=== PATIENT | male | born 1955 | race Caucasian/White ===

== ENCOUNTER → 2016-09-19 | Outpatient (CLI) | payer BC, OTHER ==
[~2016-09-19] MED LIST: ACET-749 PO; CIPR1TAB10 PO; CLC100 PO; CLC150 PO; DTR5 PO; LOSA50TA6 PO; LSN20 PO; PROM25TA PO; TPRSR50 PO; [UNRECOGNIZED DRUG - REMARK]
[2016-09-19 13:10] LABS: LYME DISEASE AB IGG NEG (NEG); LYME DISEASE AB IGM NEG (NEG)
== END | disposition home or self-care (01) ==
LOC: C.LABBFT 09:38
PROVIDERS: ATTEND Internal Medicine
DX: T14.90 Injury, unspecified (principal); W57.XXXA Bitten or stung by nonvenomous insect and other nonvenomous arthropods, initial encounter

== ENCOUNTER → 2016-12-16 | Outpatient (CLI) | payer BC | END | disposition home or self-care (01) | LOC: C.PATHSPEC 17:28 | PROVIDERS: ATTEND Urology | DX: N40.3 Nodular prostate with lower urinary tract symptoms (principal) ==

== ENCOUNTER → 2016-12-31 | Outpatient (CLI) | payer BC ==
--- NOTE | 2016-12-31 15:06 | DIAGNOSTIC IMAGING REPORT ---
BONE SCAN WHOLE BODY CLINICAL HISTORY: Prostate carcinoma COMPARISON STUDY: No previous studies for comparison. FINDINGS: The patient was injected with 25.5 mCi of technetium 99m MDP. Three-hour delayed whole body images were acquired. There are foci of increased activity within both knees, most intense at the level of the left patella. There are foci of increased activity within the wrists and feet. A degenerative/arthritic etiology is suspected. There are foci of increased activity within the thoracic spine, most pronounced to the right of midline posteriorly. There is a focus of increased activity at the L4 level posteriorly on the right. Again a degenerative etiology is most likely. IMPRESSION: Multiple scattered foci of increased skeletal activity. The overall distribution favors a degenerative/arthritic etiology. Electronically signed by: Jaime Aguirre M.D. 12/31/2016 3:05 PM Dictated Date/Time: 12/31/2016 3:03 PM
== END | disposition home or self-care (01) ==
LOC: C.NUCL 10:26
PROVIDERS: ATTEND Urology
DX: C61 Malignant neoplasm of prostate (principal)

== ENCOUNTER 2017-01-06 05:52 | Inpatient (IN) | payer BC ==
[~2017-01-06] VITALS: Ht 177.8 cm; Wt 89.4 kg
[2017-01-06] VITALS (8 sets, daily range): BP systolic 138–169; BP diastolic 86–105; PULSE 83–113; TEMP 36.7–36.9; O2SAT 91–96; Ht 177.8 cm; Wt 89.4 kg
[~2017-01-06 05:52] MED LIST changes: -ACET-749 PO; -CIPR1TAB10 PO; -CLC100 PO; -CLC150 PO; -DTR5 PO; -LOSA50TA6 PO; -LSN20 PO; -TPRSR50 PO; -[UNRECOGNIZED DRUG - REMARK]
[2017-01-06 06:36] LABS: BASO % 0.1 %; BASO ABS # 0.01 K/uL (0-0.2); COMPLETE YES; EOS % 0.1 %; HEMATOCRIT 40.8 % (42-52); IG% 0.1 %; LYMPH % 6.9 %; LYMPH ABS # 0.83 K/uL (1.2-3.4); MEAN CELL VOLUME 88.7 fL (80-100); MEAN CORPUSCULAR HEMOGLOBIN 31.1 pg (25-34); MEAN PLATELET VOLUME 9.1 fL (7.4-10.4); MONO % 8.5 %; NEUT % 84.3 %; PLATELET COUNT 244 K/uL (130-400); WHITE BLOOD COUNT 11.95 K/uL (4.8-10.8)
[2017-01-06] MEDS ORDERED: KETOROLAC TROMETHAMINE 30 MG/ML VIAL IV STA (06:43)
[2017-01-06] MEDS ORDERED: SODIUM CHLORIDE 0.9% 1000ML 1,000 ML IV STA (06:43)
--- NOTE | 2017-01-06 06:53 | EMERGENCY ROOM VISIT NOTE ---
History Report prepared by Milesibilsa: James Escamilla Under the Supervision of: Dr. Aric Jackson M.D. First contact with patient: 06:33 Chief Complaint: THROAT PAIN/INJURY Stated Complaint: SWELLING TO LEFT SIDE OF FACE, CANT SWALLOW History of Present Illness The patient is a 61 year old male who presents to the Emergency Room with complaints of constant throat swelling beginning yesterday. He states that the swelling is primarily on the left side. He states that he has developed difficulty swallowing. He states that there is only pain present in his throat with swallowing. The patient notes that he was sleeping a lot yesterday as well. He denies any shortness of breath, sore throat, vomiting, dental pain, numbness, weakness, leg pain, or abdominal pain. He complains of subjective fever, chills, nausea, and headache. The patient denies any recent falls or trauma. He notes that he was recently diagnosed with prostate cancer, but has not begun treatment yet. Source of History: patient Onset: Yesterday Position: throat (left side) Quality: other (swelling) Timing: constant Associated Symptoms: + chills, + fevers (subjective), + headache, + nausea, No SOB, No abdominal pain, No numbness, No sorethroat, No vomiting, No weakness Note: The patient denies any dental pain, or leg pain. Review of Systems See HPI for pertinent positives & negatives. A total of 10 systems reviewed and were otherwise negative. Past Medical & Surgical Medical Problems: (1) Peritonsillar abscess (2) Prostate cancer Old medical records were reviewed. Nurse's notes were reviewed and I agree with. Family History No pertinent family history stated. Social History Smoking Status: Never Smoker Drug Use: none Occupation Status: employed Current/Historical Medications No Active Prescriptions or Reported Meds Allergies Coded Allergies: No Known Allergies (Unverified , 01/06/17) Physical Exam Vital Signs Date Time Temp Pulse Resp B/P Pulse Ox O2 Delivery O2 Flow Rate FiO2 01/06/17 08:58 96 Room Air 01/06/17 08:08 84 18 143/89 96 01/06/17 07:00 86 18 126/69 94 Room Air 01/06/17 06:36 94 Room Air 01/06/17 06:04 97 Room Air 01/06/17 05:58 36.8 100 20 169/107 95 Room Air Physical Exam General: Well developed, well nourished, non-ill appearing middle aged male in no acute distress, breathing comfortably on room air. Normal speech HEENT: Normal cephalic atraumatic. Pupils are equal round and reactive to light. Extraocular movements are intact. No swelling of the mouth lips or tongue. Oropharynx is pink with moist mucous membranes. Non-muffled voice. Swallowing and speaking without difficulty. No evidence of airway compromise. No Brent's angina. Floor of mouth is soft. Mild swelling posteriorly. Tenderness and swelling to the left anterior neck. Neck: Supple with a midline trachea. No meningeal signs or stiffness, no JVD or bruits. No Stridor. Chest: Clear to auscultation bilaterally. No wheezes or rhonchi. No increased work of breathing. Heart: regular rate and rhythm. Abdomen: Soft nontender, nondistended without rebound guarding or rigidity. Extremities: No cyanosis clubbing or edema. No calf tenderness or assymetry Spine/Back. Non tender to palpation. No CVA tenderness Skin: Good turgor without rashes. Neurologic exam: Cranial nerves two through 12 are intact. Motor and sensation are intact and symmetrical throughout. Medical Decision & Procedures ER Provider Diagnostic Interpretation: CT results as stated below per my review and radiologist interpretation: CT OF THE NECK WITH CONTRAST FINDINGS: Visualized portions of the intracranial contents are unremarkable. There is mild mucosal thickening of the sinuses. Mastoid air cells are clear. There is no soft tissue gas within the neck. There is pharyngeal edema, most pronounced within the hypopharynx. There is significant swelling of the left aryepiglottic fold as well as the posterior soft tissues at this level. There is severe supraglottic airway narrowing. A 1.1 cm rim-enhancing left peritonsillar fluid collection shown on image 41 of 95 suggests a small peritonsillar abscess. There are no additional abscesses. There is mild infiltration within the left parapharyngeal soft tissues. Major vasculature of the neck is patent. Lung apices are clear. There is a 1.5 cm right lobe thyroid nodule. IMPRESSION: Significant pharyngeal edema, most pronounced within the left aryepiglottic fold and the posterior soft tissues at this level. These findings result in severe supraglottic airway narrowing. Close clinical monitoring is recommended. Associated 1.1 cm rim-enhancing left peritonsillar fluid collection suggests a small abscess. Overall, the findings favor an infectious process such as pharyngitis/tonsillitis. An underlying neoplastic process is considered less likely but would be difficult to exclude. Imaging follow-up to ensure resolution is recommended. Findings discussed with Dr. Jackson at time of dictation. Electronically signed by: Gabe Tirado M.D. Laboratory Results 01/06/17 06:20 Red Blood Count 4.60, Mean Corpuscular Volume 88.7, Mean Corpuscular Hemoglobin 31.1, Mean Corpuscular Hemoglobin Concent 35.0, Mean Platelet Volume 9.1, Neutrophils (%) (Auto) 84.3, Lymphocytes (%) (Auto) 6.9, Monocytes (%) (Auto) 8.5, Eosinophils (%) (Auto) 0.1, Basophils (%) (Auto) 0.1, Neutrophils # (Auto) 10.07, Lymphocytes # (Auto) 0.83, Monocytes # (Auto) 1.02, Eosinophils # (Auto) 0.01, Basophils # (Auto) 0.01 01/06/17 06:20 Test 01/06/17 06:20 White Blood Count 11.95 K/uL (4.8-10.8) Red Blood Count 4.60 M/uL (4.7-6.1) Hemoglobin 14.3 g/dL (14.0-18.0) Hematocrit 40.8 % (42-52) Mean Corpuscular Volume 88.7 fL (80-100) Mean Corpuscular Hemoglobin 31.1 pg (25-34) Mean Corpuscular Hemoglobin Concent 35.0 g/dl (32-36) Platelet Count 244 K/uL (130-400) Mean Platelet Volume 9.1 fL (7.4-10.4) Neutrophils (%) (Auto) 84.3 % Lymphocytes (%) (Auto) 6.9 % Monocytes (%) (Auto) 8.5 % Eosinophils (%) (Auto) 0.1 % Basophils (%) (Auto) 0.1 % Neutrophils # (Auto) 10.07 K/uL (1.4-6.5) Lymphocytes # (Auto) 0.83 K/uL (1.2-3.4) Monocytes # (Auto) 1.02 K/uL (0.11-0.59) Eosinophils # (Auto) 0.01 K/uL (0-0.5) Basophils # (Auto) 0.01 K/uL (0-0.2) RDW Standard Deviation 42.6 fL (36.4-46.3) RDW Coefficient of Variation 13.1 % (11.5-14.5) Immature Granulocyte % (Auto) 0.1 % Immature Granulocyte # (Auto) 0.01 K/uL (0.00-0.02) Anion Gap 6.0 mmol/L (3-11) Est Creatinine Clear Calc Drug Dose 77.2 ml/min Estimated GFR () 82.4 Estimated GFR (Non- 71.1 BUN/Creatinine Ratio 14.2 (10-20) Calcium Level 9.0 mg/dl (8.5-10.1) C-Reactive Protein 9.00 mg/dl (0-0.29) Hepatitis C Antibody Screen NEG (NEG) Laboratory studies as stated above per my review. Medications Administered Medications (Trade) Dose Ordered Sig/Ra Route Start Time Stop Time Status Last Admin Dose Admin Sodium Chloride (Nss 1000ml) 1,000 ml @ 999 mls/hr Q1H1M STAT IV 01/06/17 06:43 01/06/17 07:43 DC 01/06/17 06:58 999 MLS/HR Ketorolac Tromethamine (Toradol Inj) 30 mg NOW STAT IV 01/06/17 06:43 01/06/17 06:45 DC 01/06/17 06:58 30 MG Dexamethasone Sodium Phosphate 10 mg 10 mg NOW STAT IV 01/06/17 07:57 01/06/17 07:59 DC 01/06/17 08:05 10 MG Ampicillin Sodium/ Sulbactam Sodium 3000 mg/Sodium Chloride 108 ml @ 200 mls/hr NOW STAT IV 01/06/17 07:57 01/06/17 08:29 DC 01/06/17 08:09 200 MLS/HR Potassium Chloride/Dextrose/ Sod Cl (D5nss + 20meq KCl) 1,000 ml @ 75 mls/hr [id number] IV 01/06/17 09:03 02/05/17 09:02 01/06/17 10:47 75 MLS/HR ED Course 0635: Past medical records reviewed. The patient was evaluated in room A3, and a complete history and physical examination were performed. 0643: Ordered Toradol Inj 20 mg IV, Sodium Chloride 1000 ml @ 999 mls/hr IV. 0742: I checked in on the patient. He has returned from CT and feels well. He notes that his symptoms are worse when he is laying flat. 0757: Ordered Ampicillin Sodium/Sulbactam Sodium 3000 mg/Sodium Chloride 108 ml @ 200 mls/hr IV, Decadron Inj 10 mg IV. 0805: I reassessed the patient. She is stable and appears well. 0812: Upon reevaluation, the patient is resting comfortably. She is not short of breath, or drooling. Her pain is improving. I discussed the results and treatment plan with the patient. He verbalized agreement of the treatment plan. 0822: The patient will be evaluated for further management. Medical Decision Differentials include, but are not limited to; abscess, infection, strep, dehydration, allergic reaction, and electrolyte or metabolic abnormality. Medication reconciliation :, I have personally reviewed his list of medications , he is on no medications chronically. This patient comes in as described above his pain along the left side of his neck. He does have some mild swelling there. He has pain with swallowing but is handling secretions without difficulty. He has no shortness of breath. He has no hives is no nausea or vomiting. He is non-hypoxemic. IV access established was gently hydrated a 1 L IV normal saline bolus. He has no evidence of Brent's angina exam. Multiple blood tests was obtained as well as a CAT scan of his neck. He was given Toradol 30 mg IV for pain. He is on no chronic medications. He has no acute electrolyte or metabolic abnormalities. His white count is mildly elevated and a CRP is also elevated. CAT scan was obtained. There i significant amount of supraglottic inflammation likely consult the pharyngitis. The patient is given IV Decadron as well as IV Unasyn. He looks well he is not drooling. He remained stable. I did discuss the case with Dr. Guerrero and he will come scope the patient for further evaluation. Sometime this afternoon. I think this is reasonable. I will have the patient admitted for observation further treatment and evaluation. Consults Consulting Physician: Dr. Tirado -Radiology Returned Call: [phone] Discussed the patient's CT with Dr. Tirado. He states that the patient appears to have supraglottic stenosis, pharyngitis and possible abscess. Additional Consults: Time Called: 075 Consulted Physician: Dr. Guerrero -ENT Returned Call: 08 Additional Comments: I discussed the patient's case with Dr. Guerrero of ENT. He recommends that the patient be observed and receive IV antibiotics. He will see the patient. Time Called: 08 Consulted Physician: Dr. Shannan Multani Returned Call: 08 Additional Comments: Discussed the patient's case. The patient will be evaluated for further management. Impression Primary Impression: Pharyngitis Additional Impression: Supraglottic edema Scribe Attestation The scribe's documentation has been prepared under my direction and personally reviewed by me in its entirety. I confirm that the note above accurately reflects all work, treatment, procedures, and medical decision making performed by me. Departure Information Dispostion Being Evaluated By Hospitalist Prescriptions No Active Prescriptions or Reported Meds Referrals Abdulaziz Renner M.D. (PCP) Patient Instructions My [facility] Problem Qualifiers
[2017-01-06 06:54] LABS: BUN/CREATININE RATIO 14.2 (10-20); CREATININE 1.1 mg/dl (0.60-1.40); POTASSIUM 3.6 mmol/L (3.5-5.1)
[2017-01-06] MEDS ORDERED: OPTIRAY 320 IV PRN (07:45)
[2017-01-06] MEDS ORDERED: AMPICILLIN/SULBACTAM SOD INJ 3,000 MG in SODIUM CHLORIDE 0.9% 100ML 100 ML IV STA (07:57)
[2017-01-06] MEDS ORDERED: DEXAMETHASONE SOD INJ 4 MG/ML VIAL IV STA (07:57)
--- NOTE | 2017-01-06 08:06 | DIAGNOSTIC IMAGING REPORT ---
CT OF THE NECK WITH CONTRAST CT DOSE: 507.94 mGy.cm CLINICAL HISTORY: Left neck pain and swelling. TECHNIQUE: Axial images of the neck were obtained following intravenous injection of 91 cc Optiray 320 IV. COMPARISON STUDY: None. FINDINGS: Visualized portions of the intracranial contents are unremarkable. There is mild mucosal thickening of the sinuses. Mastoid air cells are clear. There is no soft tissue gas within the neck. There is pharyngeal edema, most pronounced within the hypopharynx. There is significant swelling of the left aryepiglottic fold as well as the posterior soft tissues at this level. There is severe supraglottic airway narrowing. A 1.1 cm rim-enhancing left peritonsillar fluid collection shown on image 41 of 95 suggests a small peritonsillar abscess. There are no additional abscesses. There is mild infiltration within the left parapharyngeal soft tissues. Major vasculature of the neck is patent. Lung apices are clear. There is a 1.5 cm right lobe thyroid nodule. IMPRESSION: Significant pharyngeal edema, most pronounced within the left aryepiglottic fold and the posterior soft tissues at this level. These findings result in severe supraglottic airway narrowing. Close clinical monitoring is recommended. Associated 1.1 cm rim-enhancing left peritonsillar fluid collection suggests a small abscess. Overall, the findings favor an infectious process such as pharyngitis/tonsillitis. An underlying neoplastic process is considered less likely but would be difficult to exclude. Imaging follow-up to ensure resolution is recommended. Findings discussed with Dr. Jackson at time of dictation. Electronically signed by: Gabe Tirado M.D. 01/06/2017 8:04 AM Dictated Date/Time: 01/06/2017 7:45 AM
[2017-01-06] MEDS ORDERED: ZOLPIDEM TARTRATE 5 MG TAB PO PRN (09:15)
[2017-01-06] MEDS ORDERED: MAGNESIUM HYDROXIDE SUSP 30 ML UDC PO PRN (09:15)
[2017-01-06] MEDS ORDERED: ACETAMINOPHEN 325 MG TAB PO PRN (09:15)
[2017-01-06] MEDS ORDERED: POLYETHYLENE (MIRALAX) 17 GM PACK PO PRN (09:15)
[2017-01-06] MEDS: D5NSS + 20MEQ KCL 1,000 ML IV SCH ×2 (10:47→22:24)
--- NOTE | 2017-01-06 10:59 | HISTORY & PHYSICAL EXAMINATION ---
DATE OF ADMISSION: 01/06/2017 CHIEF COMPLAINT: Sore throat. HISTORY OF PRESENT ILLNESS: The patient is a 61-year-old man who was fairly healthy until a few weeks ago when he was diagnosed with prostate cancer. The patient is under staging prostate cancer at this point, had a bone scan recently but does not know the results yet. He was in his regular state of health until 2 days ago, he was working outside in the rain for a while. When he came inside the house, he felt that he was not able to bring to warm up his body soon enough. Shortly after that, he started having malaise and body aches. He also felt some sore throat and difficulty swallowing. The patient's symptoms progressed into lethargy and feeling severe sore throat, and he was unable to eat due to pain. He said that he had intermittent fever and chills. He said that his temperature also used to go up and down. The patient came to the ED for further evaluation and management. A CAT scan was done and showed a small 1.1 cm peritonsillar abscess and pharyngeal edema. The patient denies any chest pain, palpitation. Denies any diarrhea, blood in the stools. He said when he laid flat for the CAT scan, he was having a little bit difficulty breathing, but right now it resolved in semi-sitting position. REVIEW OF SYSTEMS: Denies any headache, double vision, blurry vision. Denies any chest pain, palpitation. Denies any cough, wheezing or shortness of breath. Denies any diarrhea, blood in stools. Denies any burning in the urine or blood. Denies any focal weakness, tingling or numbness. Rest of the review of systems is negative. PAST MEDICAL HISTORY: Negative for anything except borderline diabetes and newly diagnosed prostate cancer. SOCIAL HISTORY: He does not smoke or drink. He lives by himself. FAMILY HISTORY: Sister has history of GI cancer. Mother has diabetes. HOME MEDICATIONS: None. ALLERGIES: No known allergies. PHYSICAL EXAMINATION: VITAL SIGNS: Temperature 36.8, pulse 84, respirations 18, blood pressure 143/89, saturation 96% on room air. GENERAL: Well developed, well nourished, average build, not in acute distress, appears to be comfortable. HEENT: No jaundice, no pallor. Wet mucous membrane. Pharynx appears to have a swollen soft palate and uvula with erythema. Slight narrowing of pharyngeal airway opening. NECK: Supple. Tenderness, especially on the left aspect of the neck. LUNGS: Clear to auscultation bilaterally. Normal chest wall expansion. HEART: S1, S2 normal. No gallop, rub or murmur. ABDOMEN: Soft, nontender, nondistended. EXTREMITIES: No cyanosis, clubbing or edema. BACK: No tenderness. SKIN: No rash on exposed skin areas. NEUROLOGIC: Awake, alert, oriented to time, place and person. Moves all extremities. Sensation intact. Cranial nerves II-XII appear to be intact. PSYCHIATRIC: Appropriate thought process and affect. IMAGING: CT of the neck showed 1.1 cm left peritonsillar abscess with pharyngeal edema. LABORATORY DATA: White blood cell count 11.9, hemoglobin 14.3, platelets 244. Creatinine 1.1, BUN 16, sodium 136, potassium 3.6. ASSESSMENT: 1. Left peritonsillar abscess with pharyngeal edema. 2. Newly diagnosed prostate cancer. 3. Borderline diabetes. PLAN: 1. The patient already received Unasyn. We will continue Unasyn 3 grams IV q. 6 hours. 2. Keep the patient n.p.o. 3. Start the patient on Decadron until he is seen by ENT. 4. ER already consulted Dr. Guerrero, awaiting his evaluation. 5. SCD boots for DVT prophylaxis. Currently will hold pharmacologic DVT prophylaxis for potential required surgery. 6. Pepcid for GI prophylaxis. 7. Obtain hemoglobin A1c to stratify the patient's risk factor and rule out underlying diabetes mellitus. 8. While n.p.o., we will keep him hydrated with IV fluids. 9. We will continue to monitor the patient and further evaluation will follow.
[2017-01-06] MEDS: FAMOTIDINE IV INJ 20 MG in DEXTROSE 5% 100ML 100 ML IV SCH ×2 (13:26→23:41)
--- NOTE | 2017-01-06 13:29 | CONSULTATION REPORT ---
DATE OF CONSULTATION: 01/06/2017 DIAGNOSIS: Supraglottitis. HISTORY: This 61-year-old man was admitted with 2-day history of sore throat. He did complain of some shortness of breath when he lied down for the CT scan. He states that his symptoms are greatly improved from the IV antibiotics and IV steroids since he was admitted this morning. PAST MEDICAL HISTORY: Pertinent for prostate cancer. ALLERGIES: He has no known allergies. PHYSICAL EXAMINATION: VITAL SIGNS: Temperature 36.8, BP 143/89, pulse 84, respirations 18. GENERAL: WNWD male in no acute distress, breathing comfortably on room air at this point. His speech is a little bit lower toned and a little bit hoarse but otherwise normal with no evidence of stridor. HEAD: Normocephalic. EYES: Normal. EARS: Normal. NOSE: Nasal passages, septal deviation to the left. THROAT: Oropharynx shows 2+ tonsillar hypertrophy with some redness on the left side. Fiberoptic laryngoscopy of the endolarynx showed edema of the left arytenoid with fairly normal epiglottis which is mobile. The vocal cords are mobile. NECK: Supple. Some swelling on the left side with some shotty adenopathy, otherwise negative. CT scan showed a 1.1 cm rim enhancing left peritonsillar fluid swelling. Also, there appeared to be left arytenoid edema on CT scan consistent with my fiberoptic findings. Also, there is a 1.5 cm right thyroid lobe nodule. IMPRESSION: Left peritonsillar cellulitis versus early abscess with early supraglottitis. RECOMMENDATIONS: In that the patient feels much better after IV antibiotics and IV steroids and the fiberoptic examination shows only a 5 or 6 mm arytenoid swelling with no airway compromise, I would agree with continuing the IV antibiotics of ampicillin and sulbactam along with steroids for the arytenoid edema. This was discussed at length with the patient. If his shortness of breath returns, he should be immediately transferred to the ICU for possible airway intervention by anesthesia and/or by me. Thank you.
[2017-01-06] MEDS: AMPICILLIN/SULBACTAM SOD INJ 3,000 MG in SODIUM CHLORIDE 0.9% 100ML 100 ML IV SCH ×2 (14:42→20:22)
[2017-01-06] MEDS: DEXAMETHASONE INJ 4 MG in SYRINGE 0 ML IV SCH ×2 (15:55→23:41)
[2017-01-07] VITALS (8 sets, daily range): BP systolic 145–177; BP diastolic 83–106; PULSE 65–91; TEMP 36.5–36.8; O2SAT 92–97
[2017-01-07] MEDS: AMPICILLIN/SULBACTAM SOD INJ 3,000 MG in SODIUM CHLORIDE 0.9% 100ML 100 ML IV SCH ×4 (01:11→20:02)
[2017-01-07 05:59] LABS: COMPLETE YES; HEMATOCRIT 38.4 % (42-52); IG% 0.2 %; LYMPH % 4.5 %; LYMPH ABS # 0.58 K/uL (1.2-3.4); MEAN CELL VOLUME 89.5 fL (80-100); MEAN CORPUSCULAR HEMOGLOBIN 30.3 pg (25-34); MEAN CORPUSCULAR HGB CONC 33.9 g/dl (32-36); MEAN PLATELET VOLUME 9.4 fL (7.4-10.4); MONO % 4.2 %; NEUT % 91.1 %; PLATELET COUNT 256 K/uL (130-400); RED BLOOD COUNT 4.29 M/uL (4.7-6.1); WHITE BLOOD COUNT 12.99 K/uL (4.8-10.8)
[2017-01-07 06:34] LABS: ALT/SGPT 18 U/L (12-78); AST/SGOT < 3 U/L (15-37); BLOOD UREA NITROGEN 21 mg/dl (7-18); CALCIUM 8.5 mg/dl (8.5-10.1); CARBON DIOXIDE 27 mmol/L (21-32); CHLORIDE 108 mmol/L (98-107); GLUCOSE 194 mg/dl (70-99); MAGNESIUM 2.6 mg/dl (1.8-2.4); SODIUM 140 mmol/L (136-145)
[2017-01-07 06:36] LABS: ALB/GLOB RATIO 0.8 (0.9-2); ALKALINE PHOSPHATASE 63 U/L (45-117)
[2017-01-07 06:47] LABS: ESTIMATED AVERAGE GLUCOSE 143 mg/dl; HA1C FLAG Normal (Normal)
[2017-01-07] MEDS: DEXAMETHASONE INJ 4 MG in SYRINGE 0 ML IV SCH ×2 (08:10→16:00)
[2017-01-07] MEDS: FAMOTIDINE IV INJ 20 MG in DEXTROSE 5% 100ML 100 ML IV SCH ×2 (09:39→20:55)
--- NOTE | 2017-01-07 13:21 | PROGRESS NOTE ---
DATE: 01/07/2017 SUBJECTIVE: The patient feels much better, is able to tolerate p.o. intake. OBJECTIVE: The patient is alert and oriented and has no significant dysphagia. The tonsils are slightly enlarged on the left side but otherwise no sign of abscess or erythema. IMPRESSION: Left peritonsillar cellulitis and supraglottitis, improved. RECOMMENDATIONS: The patient can be advanced on diet. If he desires, he can be followed up in my office in 2 weeks.
[2017-01-07] MEDS: D5NSS + 20MEQ KCL 1,000 ML IV SCH (14:39)
--- NOTE | 2017-01-07 17:48 | Progress Note ---
Subjective Date of Service: January 07, 2017. Subjective Pt evaluation today including: conversation w/ patient, physical exam, chart review, lab review, review of inpatient medication list Problem List Medical Problems: (1) Pharyngitis Status: Acute (2) Supraglottic edema Status: Acute Review of Systems Constitutional: No chills, No fatigue, No fever, No problem reported, No see HPI, No sweats, No weakness, No weight loss Eyes: No diplopia, No discharge, No eye pain, No problem reported, No redness, No see HPI, No worsening of vision ENT: No dental problems, No hearing loss, No nasal symptoms, No problem reported, No see HPI, No sore throat, No tinnitus, No trouble swallowing, No unusual epistaxis Respiratory: No cough, No dyspnea at rest, No dyspnea on exertion, No hemoptysis, No problem reported, No see HPI, No shortness of breath, No sputum, No wheezing Cardiac: No PND, No chest pain, No claudication, No edema, No orthopnea, No palpitations, No problem reported, No see HPI Breast: No breast lump, No breast pain, No change in shape, No nipple discharge , No problem reported, No see HPI Abdomen: No GI bleeding, No constipation, No diarrhea, No nausea, No pain, No problem reported, No see HPI, No vomiting Musculoskeletal: No calf pain, No joint pain, No muscle pain, No problem reported, No see HPI, No swelling Male : No dysuria, No hematuria, No incontinence, No nocturia more than once/ night, No problem reported, No see HPI, No sexual dysfunction, No slowing stream , No urinary frequency Neurologic: No balance problems, No memory loss, No numbness/tingling, No paralysis, No problem reported, No see HPI, No vertigo, No weakness Psychiatric: No anhedonism, No anxiety, No depression symptoms, No insomnia, No problem reported, No see HPI, No substance abuse Heme: No abnormal bleeding/bruising, No clotting problems, No night sweats, No problem reported, No see HPI, No swollen lymph nodes Skin: No bleeding, No color change, No itch, No new/changing skin lesions, No problem reported, No rash, No see HPI Objective Vital Signs Date Time Temp Pulse Resp B/P Pulse Ox O2 Delivery O2 Flow Rate FiO2 01/07/17 16:00 Room Air 01/07/17 15:22 36.6 91 20 177/106 92 Room Air 01/07/17 12:00 95 Room Air 01/07/17 11:57 36.5 72 18 161/95 95 Room Air 158/90 01/07/17 08:00 97 Room Air 01/07/17 06:51 36.6 81 18 158/91 97 Room Air 01/07/17 04:58 36.8 82 20 145/83 93 Room Air 01/07/17 04:05 Room Air 01/07/17 00:05 Room Air 01/06/17 23:43 36.8 87 18 161/97 92 Room Air 01/06/17 20:00 Room Air 01/06/17 19:16 36.8 99 20 150/102 94 Room Air Physical Exam General Appearance: WD/WN, no apparent distress Eyes: normal inspection, EOMI ENT: normal ENT inspection, hearing grossly normal Neck: supple, + pertinent finding (tenderness on the left aspect of the neck) Respiratory/Chest: chest non-tender, lungs clear, normal breath sounds, no respiratory distress, no accessory muscle use Cardiovascular: regular rate, rhythm, no edema, no gallop, no JVD, no murmur Abdomen: normal bowel sounds, non tender, soft, no organomegaly, no pulsatile mass Extremities: normal range of motion, non-tender, normal inspection, no pedal edema, no calf tenderness 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, no motor/sensory deficits, alert, normal mood/affect, oriented x 3 Skin: normal color, warm/dry, no rash Laboratory Results Last 24 Hours Test 01/07/17 05:32 White Blood Count 12.99 K/uL Red Blood Count 4.29 M/uL Hemoglobin 13.0 g/dL Hematocrit 38.4 % Mean Corpuscular Volume 89.5 fL Mean Corpuscular Hemoglobin 30.3 pg Mean Corpuscular Hemoglobin Concent 33.9 g/dl Platelet Count 256 K/uL Mean Platelet Volume 9.4 fL Neutrophils (%) (Auto) 91.1 % Lymphocytes (%) (Auto) 4.5 % Monocytes (%) (Auto) 4.2 % Eosinophils (%) (Auto) 0.0 % Basophils (%) (Auto) 0.0 % Neutrophils # (Auto) 11.85 K/uL Lymphocytes # (Auto) 0.58 K/uL Monocytes # (Auto) 0.54 K/uL Eosinophils # (Auto) 0.00 K/uL Basophils # (Auto) 0.00 K/uL RDW Standard Deviation 43.3 fL RDW Coefficient of Variation 13.1 % Immature Granulocyte % (Auto) 0.2 % Immature Granulocyte # (Auto) 0.02 K/uL Sodium Level 140 mmol/L Potassium Level 4.0 mmol/L Chloride Level 108 mmol/L Carbon Dioxide Level 27 mmol/L Anion Gap 5.0 mmol/L Blood Urea Nitrogen 21 mg/dl Creatinine 1.00 mg/dl Est Creatinine Clear Calc Drug Dose 78.1 ml/min Estimated GFR () 92.4 Estimated GFR (Non- 79.7 BUN/Creatinine Ratio 21.0 Random Glucose 194 mg/dl Estimated Average Glucose 143 mg/dl Hemoglobin A1c 6.6 % Calcium Level 8.5 mg/dl Magnesium Level 2.6 mg/dl Total Bilirubin 0.3 mg/dl Aspartate Amino Transf (AST/SGOT) < 3 U/L Alanine Aminotransferase (ALT/SGPT) 18 U/L Alkaline Phosphatase 63 U/L Total Protein 6.6 gm/dl Albumin 2.9 gm/dl Globulin 3.7 gm/dl Albumin/Globulin Ratio 0.8 Assessment and Plan ASSESSMENT: 1. Left peritonsillar abscess with pharyngeal edema. 2. Newly diagnosed prostate cancer. 3. Borderline diabetes. 4. Newly diagnosed HTN PLAN: Improving continue Unasyn 3 grams IV q. 6 hours. start soft diet continue Decadron ENT consult appreciated, agreed with IV Abx SCD boots for DVT prophylaxis. since there will be no surgery will add pharmacologic DVT prophylaxis Pepcid for GI prophylaxis. started toprol XL for HTN hemoglobin A1c was normal
[2017-01-07] MEDS: METOPROLOL SUCC 50MG EXT REL TAB PO SCH (18:03)
[2017-01-07 19:19] LABS: PARTIAL THROMBOPLASTIN RATIO 0.9; PROTHROMBIN TIME (PATIENT) 10.2 SECONDS (9.0-12.0)
[2017-01-07] MEDS ORDERED: ENOXAPARIN 40 MG/0.4 ML SYR SQ SCH (21:00)
[2017-01-08] VITALS (8 sets, daily range): BP systolic 146–167; BP diastolic 84–102; PULSE 63–68; TEMP 36.4–36.7; O2SAT 93–95
[2017-01-08] MEDS: DEXAMETHASONE INJ 4 MG in SYRINGE 0 ML IV SCH ×2 (00:26→08:19)
[2017-01-08] MEDS: AMPICILLIN/SULBACTAM SOD INJ 3,000 MG in SODIUM CHLORIDE 0.9% 100ML 100 ML IV SCH ×2 (02:08→08:23)
[2017-01-08] MEDS: D5NSS + 20MEQ KCL 1,000 ML IV SCH (03:15)
[2017-01-08 06:37] LABS: COMPLETE YES; HEMATOCRIT 37.4 % (42-52); IG% 0.2 %; LYMPH ABS # 0.61 K/uL (1.2-3.4); MEAN CELL VOLUME 89.7 fL (80-100); MEAN CORPUSCULAR HEMOGLOBIN 30.2 pg (25-34); MEAN CORPUSCULAR HGB CONC 33.7 g/dl (32-36); MEAN PLATELET VOLUME 9.7 fL (7.4-10.4); MONO % 3.6 %; NEUT % 91.2 %; PLATELET COUNT 280 K/uL (130-400); RED BLOOD COUNT 4.17 M/uL (4.7-6.1); WHITE BLOOD COUNT 12.09 K/uL (4.8-10.8)
[2017-01-08 07:08] LABS: BUN/CREATININE RATIO 19.9 (10-20); CREATININE 0.99 mg/dl (0.60-1.40); POTASSIUM 3.9 mmol/L (3.5-5.1)
[2017-01-08 07:10] LABS: ALB/GLOB RATIO 0.8 (0.9-2); CALCIUM 8.5 mg/dl (8.5-10.1)
[2017-01-08] MEDS: LACTOBACILLUS ACIDOPHILUS 1 GM PACK PO SCH ×2 (08:19→12:54)
[2017-01-08] MEDS: METOPROLOL SUCC 50MG EXT REL TAB PO SCH (08:19)
[2017-01-08] MEDS: FAMOTIDINE IV INJ 20 MG in DEXTROSE 5% 100ML 100 ML IV SCH (08:25)
[2017-01-08] MEDS ORDERED: LISINOPRIL 20 MG TAB PO STA (13:12)
[2017-01-08] MEDS ORDERED: CLINDAMYCIN HCL 150 MG CAP PO SCH (14:00)
[2017-01-08] MEDS ORDERED: TPRSR50 PO (14:24)
[2017-01-08] MEDS ORDERED: CLC150 PO (14:24)
[2017-01-08] MEDS ORDERED: LSN20 PO (14:24)
--- NOTE | 2017-01-08 14:29 | Discharge Instructions ---
Discharge Instructions Date of Service January 08, 2017. Admission Reason for Admission: Peritonsillar Abcess Discharge Discharge Diagnosis / Problem: Peritonsillar cellulitis/abscess Discharge Goals Goal(s): Decrease discomfort, Improve function, Increase independence, Improve disease control, Diagnostic testing, Therapeutic intervention Activity Recommendations Activity Limitations: resume your previous activity Exercise/Sports Limitations: none . Instructions / Follow-Up Instructions / Follow-Up Patient to be discharged home Blood pressure still elevated, please take metoprolol and lisinopril once a day For peritonsillar abscess, please take antibiotic clindamycin 1 pill every 6 hrs for next 10 days Prescriptions sent to pharmacy F/U with Dr Renner in 1-2 weeks If worsening pain, fevers please report to ER Current Hospital Diet Patient's current hospital diet: Full Liquid Diet Discharge Diet Recommended Diet: Low Sodium Diet (2gm Na) Pending Studies Studies pending at discharge: no Laboratory Results Hemoglobin A1c Test 01/07/17 05:32 Range/Units Estimated Average Glucose 143 mg/dl Hemoglobin A1c 6.6 H 4.5-5.6 % Medical Emergencies . Who to Call and When: Medical Emergencies: If at any time you feel your situation is an emergency, please call 911 immediately. . Non-Emergent Contact Non-Emergency issues call your: Primary Care Provider Call Non-Emergent contact if: you have a fever, your pain is worsening . . "Provider Documentation" section prepared by Carl Oliva. . VTE Core Measure Inpt VTE Proph given/why not?: Treatment not indicated, Contraindicated
--- NOTE | 2017-01-08 15:30 | PROGRESS NOTE ---
DATE: 01/08/2017 DIAGNOSIS: Left peritonsillar abscess. SUBJECTIVE: The patient feels much improved; however, his blood pressure still remains elevated and is delaying his discharge. OBJECTIVE: The patient's throat looks fine with pink tonsils. ASSESSMENT: Peritonsillar abscess, improved. RECOMMENDATIONS: The patient will call me if he has any further sore throat.
--- NOTE | 2017-01-08 15:32 | Discharge Summary ---
Discharge Summary Date of Service January 08, 2017. Discharge Summary Admission Date: January 06, 2017 at 09:07 Discharge Date: January 08, 2017 Discharge Disposition: Home Principal Diagnosis: Peritonsillar abscess Consultations: ENT Medication Reconciliation New Medications: Lisinopril (Lisinopril) 20 Mg Tab 20 MG PO DAILY for 30 Days, #30 TABS Clindamycin HCl (Clindamycin HCl) 150 Mg Cap 300 MG PO Q6 for 10 Days, #40 CAP Metoprolol Succinate (Metoprolol Succinate ER) 50 Mg Tabcr 50 MG PO QAM for 30 Days, #30 TAB Discharge Exam Review of Systems: Constitutional: No chills, No fever Respiratory: No cough, No sputum Cardiovascular: No chest pain, No edema, No orthopnea Abdomen: No diarrhea, No nausea, No pain, No vomiting Musculoskeletal: No joint pain, No muscle pain Genitourinary - Male: No dysuria, No hematuria Neurologic: No paralysis, No weakness Physical Exam: General Appearance: WD/WN, no apparent distress Eyes: PERRL, EOMI Neck: supple, no adenopathy Respiratory/Chest: lungs clear, normal breath sounds Cardiovascular: no edema, no gallop Abdomen / GI: non tender, soft Neurologic/Psychiatric: alert, oriented x 3 Hospital Course ASSESSMENT: 1. Left peritonsillar abscess with pharyngeal edema. 2. Newly diagnosed prostate cancer. 3. Borderline diabetes. 4. Newly diagnosed HTN PLAN: Improving on Unasyn 3 grams IV q. 6 hours. continue Decadron ENT consult appreciated Discharge home on clindamycin 300 mg PO q 6 hrs x 10 days BP uncontrolled, sent home on metoprolol and lisinopril, f/u PCP in 1 week, low Na diet Total Time Spent: Greater than 30 minutes This includes examination of the patient, discharge planning, medication reconciliation, and communication with other providers. Discharge Instructions Please refer to the electronic Patient Visit Report (Discharge Instructions) for additional information. Additional Copies To Abdulaziz Renner M.D.
[2017-01-13] MEDS ORDERED: [UNRECOGNIZED DRUG - REMARK] (09:30)
[2017-02-18] MEDS ORDERED: LOSA50TA6 PO (11:48)
== END 2017-01-08 15:25 | disposition home or self-care (01) | DRG 153 ==
LOC: ENRESERVTM → ENRESERVDT → C.EDB 05:54 → C.MED 09:07
PROVIDERS: ADMIT Internal Medicine; ATTEND Hospitalist
DX: J36 Peritonsillar abscess (principal); J04.30 Supraglottitis, unspecified, without obstruction; C61 Malignant neoplasm of prostate; Z83.3 Family history of diabetes mellitus; R73.03 Prediabetes; I10 Essential (primary) hypertension

== ENCOUNTER → 2017-02-23 | Outpatient (CLI) | payer BC ==
[~2017-02-23] MED LIST changes: +ACET-749 PO; +CIPR1TAB10 PO; +CLC100 PO; +DTR5 PO; +LOSA50TA6 PO; -PROM25TA PO
[2017-02-23 13:49] LABS: RATIO 12.6 mcg/mg (0-30.0)
[2017-02-23 14:32] LABS: BLOOD UREA NITROGEN 18 mg/dl (7-18); BUN/CREATININE RATIO 16.3 (10-20); CARBON DIOXIDE 26 mmol/L (21-32); CHLORIDE 106 mmol/L (98-107); CHOLESTEROL 204 mg/dl (0-200); GLUCOSE 137 mg/dl (70-99); POTASSIUM 3.9 mmol/L (3.5-5.1); SODIUM 140 mmol/L (136-145)
[2017-02-23 14:37] LABS: CHOLESTEROL/HDL RATIO 5.2; HDL CHOLESTEROL 39 mg/dl; LDL CHOLESTEROL CALCULATED 109 mg/dl; TRIGLYCERIDES 282 mg/dl (0-150); VERY LOW DENSITY LIPOPROT CALC 56 mg/dl
== END | disposition home or self-care (01) ==
LOC: C.LABBFT 07:50
PROVIDERS: ATTEND Internal Medicine
DX: E11.9 Type 2 diabetes mellitus without complications (principal); N40.3 Nodular prostate with lower urinary tract symptoms; I10 Essential (primary) hypertension; E78.5 Hyperlipidemia, unspecified

== ENCOUNTER 2017-02-24 06:58 | Inpatient (IN) | payer BC ==
[2017-02-11 13:21] VITALS: BMI 28.0
--- NOTE | 2017-02-11 14:14 | DIAGNOSTIC IMAGING REPORT ---
CHEST 2 VIEWS ROUTINE CLINICAL HISTORY: Preoperative chest COMPARISON STUDY: No previous studies for comparison. FINDINGS: The cardiac and mediastinal contours are normal. There is no evidence of focal pulmonary consolidation. There is no evidence of failure. No pleural effusions are visualized.[ IMPRESSION: No active disease in the chest. Electronically signed by: Jaime Aguirre M.D. 02/11/2017 2:13 PM Dictated Date/Time: 02/11/2017 2:13 PM
[2017-02-11 14:19] LABS: BASO % 0.9 %; BASO ABS # 0.05 K/uL (0-0.2); COMPLETE YES; EOS % 1.6 %; HEMATOCRIT 37.8 % (42-52); IG% 0.2 %; LYMPH % 26.5 %; LYMPH ABS # 1.48 K/uL (1.2-3.4); MEAN CELL VOLUME 88.9 fL (80-100); MEAN CORPUSCULAR HEMOGLOBIN 29.2 pg (25-34); MEAN CORPUSCULAR HGB CONC 32.8 g/dl (32-36); MEAN PLATELET VOLUME 8.8 fL (7.4-10.4); MONO % 8.1 %; NEUT % 62.7 %; PLATELET COUNT 341 K/uL (130-400); RED BLOOD COUNT 4.25 M/uL (4.7-6.1); WHITE BLOOD COUNT 5.58 K/uL (4.8-10.8)
[2017-02-11 14:26] LABS: URINE APPEARANCE CLEAR (CLEAR); URINE BILIRUBIN NEG (NEG); URINE COLOR YELLOW; URINE NITRITE NEG (NEG); URINE SPECIFIC GRAVITY 1.022 (1.000-1.030); UROBILINOGEN NEG (NEG)
[2017-02-11 14:35] LABS: MANUAL MICROSCOPIC REQUIRED? NO; REVIEW REQ? NO
[2017-02-11 16:15] LABS: BUN/CREATININE RATIO 13.9 (10-20); CALCIUM 8.7 mg/dl (8.5-10.1); POTASSIUM 3.8 mmol/L (3.5-5.1)
[~2017-02-24] VITALS: Ht 177.8 cm; Wt 89.2 kg
[2017-02-24] VITALS (10 sets, daily range): BP systolic 134–160; BP diastolic 83–105; PULSE 60–93; TEMP 36.5–36.9; O2SAT 94–97; BMI 28.0
[~2017-02-24 06:58] MED LIST changes: -ACET-749 PO; +CEFAZOLIN 2000 MG/60 ML D5W IV SCH; -CIPR1TAB10 PO; -CLC100 PO; +DEXAMETHASONE SOD INJ 4 MG/ML VIAL ONE; -DTR5 PO; +FENTANYL CITRATE INJ 50 MCG/1 ML 2 ML VIAL ONE; +GLYCOPYRROLATE INJ 0.2 MG/ML VIAL ONE; +HEPARIN SOD 5000 UNIT/0.5 ML CARP SQ SCH; +LACTATED RINGER'S 1000ML 1,000 ML IV SCH; +LIDOCAINE HCL 2% 2 ML VIAL (20MG/ML) ONE; +MIDAZOLAM HCL 1 MG/ML 2ML VIAL ONE; +ONDANSETRON INJ 2 MG/ML 2 ML VIAL ONE; +PROPOFOL IV EMULSION 10 MG/ML 20 ML VIAL IV ONE; +ROCURONIUM BROMIDE 10 MG/ML 5 ML VIAL ONE
[2017-02-24] MEDS ORDERED: BUPIVACAINE 0.5 % 5 MG/1 ML MPF 30ML VIAL ONE (06:59)
[2017-02-24] MEDS ORDERED: METHYLENE BLUE 0.5% 10 ML VIAL ONE (07:10)
--- NOTE | 2017-02-24 08:15 | History & Physical Bridge Note ---
H&P Re-Evaluation Bridge Note: I have examined the patient, reviewed the History & Physical and in the interval since the performance of the History & Physical I have noted the following changes of clinical significance: No changes noted
[2017-02-24] MEDS ORDERED: BELLADONNA/OPIUM SUPP 60 MG SUPP PR ONE ×2 (08:42→10:17)
[2017-02-24] MEDS ORDERED: HYDROmorphone INJ 2 MG/ML SYR/VIAL ONE (08:43)
[2017-02-24] MEDS ORDERED: ROCURONIUM BROMIDE 10 MG/ML 5 ML VIAL ONE (09:03)
[2017-02-24] MEDS ORDERED: LABETALOL HCL IV 5 MG/ML 20ML IV PRN (09:15)
[2017-02-24] MEDS ORDERED: ONDANSETRON INJ 2 MG/ML 2 ML VIAL IV PRN ×2 (09:15→11:30)
[2017-02-24] MEDS ORDERED: ATROPINE SULFATE 0.1 MG/ML 5ML SYR IV PRN (09:15)
[2017-02-24] MEDS ORDERED: HYDROmorphone INJ 2 MG/ML SYR/VIAL IV PRN (09:15)
[2017-02-24] MEDS ORDERED: FLOSEAL HEMOSTATIC MATRIX 10ML TOP ONE (10:27)
[2017-02-24] MEDS ORDERED: SURGICEL ABSORB HEMOSTAT 2IN X 14IN TOP ONE (10:27)
[2017-02-24] MEDS ORDERED: KETOROLAC TROMETHAMINE 30 MG/ML VIAL IV. PRN (11:30)
[2017-02-24] MEDS ORDERED: HYDROmorphone INJ 1 MG/ML SYR IV PRN (11:30)
[2017-02-24] MEDS ORDERED: OXYBUTYNIN CHLORIDE 5 MG TAB PO PRN (11:30)
[2017-02-24] MEDS ORDERED: ACETAMINOPHEN/CODEINE 300/30MG TAB PO PRN (11:30)
--- NOTE | 2017-02-24 11:42 | [facility] Post Operative Brief Note ---
Immediate Operative Summary Operative Date Feb 24, 2017. Pre-Operative Diagnosis Prostate cancer Post-Operative Diagnosis Prostate cancer Procedure(s) Performed Robotic assisted laparoscopic prostatectomy with bilateral pelvic lymph node dissection Surgeon Dr. Abdulaziz Granado MD Electrical Instrument Repairer Surgeon(s) Sailaja Rodríguez RN, NOTCH MACHINE OPERATOR Estimated Blood Loss 150 ml Findings As per dictation Specimens A. Prostate and seminal vesicles B. Salima-prostatic fat C. Right pelvic lymph node D. Left pelvic lymph node Drains RUSS; vallejo Anesthesia Gen Complication(s) None Disposition Recovery Room / PACU (stable)
[2017-02-24] MEDS ORDERED: PHARMACY GLYCEMIC MGMT CONSULT SCH (11:54)
[2017-02-24 12:35] LABS: HEMATOCRIT 38.5 % (42-52); MEAN CORPUSCULAR HEMOGLOBIN 30.3 pg (25-34); PLATELET COUNT 240 K/uL (130-400); RED BLOOD COUNT 4.23 M/uL (4.7-6.1); WHITE BLOOD COUNT 8.35 K/uL (4.8-10.8)
--- NOTE | 2017-02-24 12:37 | Anesthesiology Progress Note ---
Anesthesia Post Op Note Date & Time Feb 24, 2017 at 12:37 Vital Signs Pain Intensity: 0 Vital Signs Past 12 Hours Date Time Temp Pulse Resp B/P (MAP) Pulse Ox O2 Delivery O2 Flow Rate FiO2 02/24/17 12:30 36.4 59 16 155/95 98 Oxymask 2 02/24/17 12:20 63 16 157/97 98 Oxymask 5 02/24/17 12:10 69 16 162/101 98 Oxymask 5 02/24/17 12:00 76 18 158/95 98 Oxymask 10 02/24/17 11:54 36.3 76 9 151/93 95 Oxymask 10 02/24/17 07:43 36.5 67 18 153/105 96 Room Air Notes Mental Status: alert / awake / arousable, participated in evaluation Pt Amnestic to Procedure: Yes Nausea / Vomiting: adequately controlled Pain: adequately controlled Airway Patency, RR, SpO2: stable & adequate BP & HR: stable & adequate Hydration State: stable & adequate Anesthetic Complications: no major complications apparent
[2017-02-24 12:43] LABS: MEAN CORPUSCULAR HGB CONC 33.2 g/dl (32-36)
[2017-02-24 12:55] LABS: BUN/CREATININE RATIO 12.7 (10-20); CALCIUM 8.2 mg/dl (8.5-10.1); CREATININE 1.2 mg/dl (0.60-1.40); POTASSIUM 4.4 mmol/L (3.5-5.1)
[2017-02-24] MEDS ORDERED: DEXTROSE 50% 50 ML SYR IV PRN (13:30)
[2017-02-24] MEDS ORDERED: GLUCAGON FOR INJ 1 MG VIAL SQ PRN (13:30)
[2017-02-24] MEDS ORDERED: GLUCOSE 10 TABS/TUBE PO PRN (13:30)
[2017-02-24] MEDS ORDERED: GLUCOSE 40% GEL 15 GM TUBE PO PRN (13:30)
[2017-02-24] MEDS: LACTATED RINGER'S 1000ML 1,000 ML IV SCH ×2 (13:30→20:08)
--- NOTE | 2017-02-24 13:59 | Pharmacy Progress Note ---
Glycemic Control Intl Consult Date of Service Feb 24, 2017. Scope Glycemic Pharmacist consulted on 02/24/17 for glycemic control and to write orders per [facility] inpatient glycemic control protocol Objective Weight (Kilograms): 89.20 Accuchecks BSG (last 24hrs): Test 02/24/17 07:34 02/24/17 11:59 02/24/17 12:21 Bedside Glucose 122 mg/dl (70-99) 159 mg/dl (70-99) Random Glucose 185 mg/dl (70-99) Laboratory Data (last 24hrs) Test 02/24/17 12:21 Anion Gap 6.0 mmol/L BUN/Creatinine Ratio 12.7 Blood Urea Nitrogen 15 mg/dl Creatinine 1.20 mg/dl Potassium Level 4.4 mmol/L Sodium Level 138 mmol/L White Blood Count 8.35 K/uL HbA1c Item Value Date Time Hemoglobin A1c 6.6 % H 01/07/17 0532 Recent Pertinent Medications Outpatient Anti-diabetic Regimen: * N/A Risk Factors for Insulin Resistance: * Steroids: Intraoperative dexamethasone 8 mg IV X 1 * Recent Surgery: POD #0 * Diet: clears Assessment & Plan ASSESSMENT: * 61 yo M admitted s/p prostatectomy, POD#0 * Based on preadmission A1c of 6.6%, pt has "pre-diabetes" * Dexamethasone 8 mg IV X 1 given intraoperatively likely will cause some degree of steroid-induced hyperglycemia * My plan will be to initiate wt-based Novolog in an insulin naive patient, and only give Lantus if BSG >180 mg/dL at bedtime * Titrate insulin over the next 48 hours based on BSG trend * ADA & AACE recommend a goal blood sugar range 140-180 mg/dl for the majority of critically ill & non-critically ill patients. However, more stringent targets may be selected in individual cases. Tighten to 110-140 mg/dL since patient's BSGs normally in this range. PLAN FOR INPATIENT GLYCEMIC CONTROL: * Basal insulin with LANTUS 10 ONLY IF BSG >180 * Correctional Insulin with NOVOLOG per scale ACHS * Goal Range: Low 110 mg/dL - High 140 mg/dL * Correction Factor: 25 mg/dL/unit * Nutritional / Prandial insulin per carb ratio of 1 unit per 12 grams CHO consumed * Please note that the plan above was derived based on current level of insulin resistance and hospital stress. These recommendations are appropriate for inpatient admission only. Plan of care upon discharge will need to be reassessed to avoid potential outpatient hypo/hyperglycemia. Thank you.
[2017-02-24] MEDS: CEFAZOLIN IV 2,000 MG in DEXTROSE 5% 50ML 50 ML IV SCH (15:30)
[2017-02-24] MEDS: ACETAMINOPHEN 500 MG TAB PO SCH (17:53)
[2017-02-24] MEDS: INSULIN ASPART 100 UNITS/ML 3 ML PEN SC SCH ×2 (17:58→21:16)
[2017-02-24] MEDS: HEPARIN SOD 5000 UNIT/0.5 ML CARP SQ SCH (19:18)
[2017-02-24] MEDS ORDERED: NURSING VERBAL MED ORDER ONE (20:45)
[2017-02-24] MEDS ORDERED: LANTUS PER UNIT CHARGE SQ SCH (21:00)
[2017-02-24] MEDS: DOCUSATE SODIUM 100 MG CAP PO SCH (21:13)
[2017-02-25] MEDS: ACETAMINOPHEN 500 MG TAB PO SCH ×3 (00:10→12:20)
[2017-02-25] MEDS: CEFAZOLIN IV 2,000 MG in DEXTROSE 5% 50ML 50 ML IV SCH ×2 (00:10→08:22)
[2017-02-25] MEDS: LACTATED RINGER'S 1000ML 1,000 ML IV SCH ×2 (02:39→08:35)
[2017-02-25 03:59] VITALS: BP 144/78; PULSE 84; TEMP 36.9; O2SAT 96
[2017-02-25 06:21] LABS: BASO % 0.1 %; BASO ABS # 0.01 K/uL (0-0.2); COMPLETE YES; HEMATOCRIT 33.8 % (42-52); IG% 0.1 %; LYMPH % 9.4 %; LYMPH ABS # 0.88 K/uL (1.2-3.4); MEAN CELL VOLUME 89.9 fL (80-100); MEAN CORPUSCULAR HEMOGLOBIN 30.3 pg (25-34); MEAN CORPUSCULAR HGB CONC 33.7 g/dl (32-36); MONO % 7.3 %; NEUT % 83.1 %; PLATELET COUNT 209 K/uL (130-400); RED BLOOD COUNT 3.76 M/uL (4.7-6.1); WHITE BLOOD COUNT 9.36 K/uL (4.8-10.8)
[2017-02-25] MEDS: HEPARIN SOD 5000 UNIT/0.5 ML CARP SQ SCH (06:21)
[2017-02-25 07:02] VITALS: BP 145/72; PULSE 75; TEMP 36.8; O2SAT 96
[2017-02-25 07:04] LABS: BUN/CREATININE RATIO 14.8 (10-20); CALCIUM 7.9 mg/dl (8.5-10.1); CREATININE 1.2 mg/dl (0.60-1.40); POTASSIUM 3.7 mmol/L (3.5-5.1)
--- NOTE | 2017-02-25 08:13 | Anesthesiology Progress Note ---
Anesthesia Post Op Note Date & Time Feb 25, 2017 at 08:13 Vital Signs Vital Signs Past 12 Hours Date Time Temp Pulse Resp B/P (MAP) Pulse Ox O2 Delivery O2 Flow Rate FiO2 02/25/17 07:44 Room Air 02/25/17 07:02 36.8 75 18 145/72 (96) 96 Room Air 02/25/17 03:59 36.9 84 16 144/78 (100) 96 Room Air 02/24/17 23:15 Room Air 02/24/17 23:06 36.9 93 16 143/83 (103) 95 Room Air Notes Mental Status: alert / awake / arousable, participated in evaluation Pt Amnestic to Procedure: Yes Nausea / Vomiting: adequately controlled Pain: adequately controlled Airway Patency, RR, SpO2: stable & adequate BP & HR: stable & adequate Hydration State: stable & adequate Anesthetic Complications: no major complications apparent
--- NOTE | 2017-02-25 08:15 | Progress Note ---
Subjective Date of Service: Feb 25, 2017. Subjective Pt evaluation today including: conversation w/ patient, chart review, lab review Voiding: vallejo catheter in place (patent, draining clear, yellow urine) 61 yo male s/p RALRP. Pt c/o some abdominal soreness at incision sites this morning, but otherwise feels well. Denies n/v. Denies flatus or BM. Labs stable. I&Os acceptable. Pt reports ambulating to the hallway last evening without difficulty. He is noted to have received insulin this admission. Not on insulin at home, but does monitor his glucose at home. Problem List Medical Problems: (1) Pharyngitis Status: Acute (2) Supraglottic edema Status: Acute Review of Systems Constitutional: No fever, No chills Respiratory: No shortness of breath Cardiac: No chest pain Abdomen: + pain (abdominal soreness at incision sites), No nausea, No vomiting Male : No hematuria Heme: No abnormal bleeding/bruising Objective Vital Signs Date Time Temp Pulse Resp B/P (MAP) Pulse Ox O2 Delivery O2 Flow Rate FiO2 02/25/17 07:44 Room Air 02/25/17 07:02 36.8 75 18 145/72 (96) 96 Room Air 02/25/17 03:59 36.9 84 16 144/78 (100) 96 Room Air 02/24/17 23:15 Room Air 02/24/17 23:06 36.9 93 16 143/83 (103) 95 Room Air 02/24/17 19:08 36.7 70 18 146/85 (105) 96 Room Air 02/24/17 15:47 36.6 68 16 145/88 (107) 95 Room Air 02/24/17 15:30 97 Room Air 02/24/17 14:55 77 18 134/84 (101) 94 Room Air 02/24/17 13:54 68 18 141/88 (105) 02/24/17 13:26 Nasal Cannula 2.0 02/24/17 13:20 36.5 60 16 152/89 (110) 97 Nasal Cannula 2.0 02/24/17 13:05 96 Nasal Cannula 2.0 02/24/17 12:50 36.7 64 16 160/90 (113) 94 Room Air 02/24/17 12:40 61 16 145/99 98 Oxymask 2 02/24/17 12:30 36.4 59 16 155/95 98 Oxymask 2 02/24/17 12:20 63 16 157/97 98 Oxymask 5 02/24/17 12:10 69 16 162/101 98 Oxymask 5 02/24/17 12:00 76 18 158/95 98 Oxymask 10 02/24/17 11:54 36.3 76 9 151/93 95 Oxymask 10 Physical Exam General Appearance: no apparent distress Eyes: normal inspection ENT: hearing grossly normal Neck: no JVD Respiratory/Chest: no respiratory distress, no accessory muscle use Cardiovascular: no JVD Abdomen: + pertinent finding (abdominal incisions c/d/i; RUSS draining serosanguinous fluid) Extremities: normal inspection Neurologic/Psychiatric: alert, normal mood/affect, oriented x 3 Skin: normal color Laboratory Results Last 24 Hours Test 02/24/17 11:59 02/24/17 12:21 02/24/17 16:43 02/24/17 20:34 Bedside Glucose 159 mg/dl 184 mg/dl 230 mg/dl White Blood Count 8.35 K/uL Red Blood Count 4.23 M/uL Hemoglobin 12.8 g/dL Hematocrit 38.5 % Mean Corpuscular Volume 91.0 fL Mean Corpuscular Hemoglobin 30.3 pg Mean Corpuscular Hemoglobin Concent 33.2 g/dl RDW Standard Deviation 46.0 fL RDW Coefficient of Variation 13.9 % Platelet Count 240 K/uL Mean Platelet Volume 9.0 fL Sodium Level 138 mmol/L Potassium Level 4.4 mmol/L Chloride Level 106 mmol/L Carbon Dioxide Level 26 mmol/L Anion Gap 6.0 mmol/L Blood Urea Nitrogen 15 mg/dl Creatinine 1.20 mg/dl Est Creatinine Clear Calc Drug Dose 70.8 ml/min Estimated GFR () 74.1 Estimated GFR (Non- 64.0 BUN/Creatinine Ratio 12.7 Random Glucose 185 mg/dl Calcium Level 8.2 mg/dl Test 02/25/17 06:10 White Blood Count 9.36 K/uL Red Blood Count 3.76 M/uL Hemoglobin 11.4 g/dL Hematocrit 33.8 % Mean Corpuscular Volume 89.9 fL Mean Corpuscular Hemoglobin 30.3 pg Mean Corpuscular Hemoglobin Concent 33.7 g/dl Platelet Count 209 K/uL Mean Platelet Volume 9.0 fL Neutrophils (%) (Auto) 83.1 % Lymphocytes (%) (Auto) 9.4 % Monocytes (%) (Auto) 7.3 % Eosinophils (%) (Auto) 0.0 % Basophils (%) (Auto) 0.1 % Neutrophils # (Auto) 7.78 K/uL Lymphocytes # (Auto) 0.88 K/uL Monocytes # (Auto) 0.68 K/uL Eosinophils # (Auto) 0.00 K/uL Basophils # (Auto) 0.01 K/uL RDW Standard Deviation 45.8 fL RDW Coefficient of Variation 13.8 % Immature Granulocyte % (Auto) 0.1 % Immature Granulocyte # (Auto) 0.01 K/uL Sodium Level 139 mmol/L Potassium Level 3.7 mmol/L Chloride Level 105 mmol/L Carbon Dioxide Level 25 mmol/L Anion Gap 9.0 mmol/L Blood Urea Nitrogen 18 mg/dl Creatinine 1.20 mg/dl Est Creatinine Clear Calc Drug Dose 70.8 ml/min Estimated GFR () 74.1 Estimated GFR (Non- 64.0 BUN/Creatinine Ratio 14.8 Random Glucose 138 mg/dl Calcium Level 7.9 mg/dl Assessment and Plan POD #1 s/p RALRP. AFVSS. Pt doing well post-op. Will advance to a mechanical soft diabetic diet for breakfast. Encourage ambulation to hallway. Encourage use of IS. Possible d/c home after lunch if tolerating PO, pain controlled, and ambulating without difficulty. Discharge planning: home
[2017-02-25] MEDS ORDERED: CLC100 PO (08:18)
[2017-02-25] MEDS ORDERED: ACET-749 PO (08:18)
[2017-02-25] MEDS ORDERED: DTR5 PO (08:18)
[2017-02-25] MEDS ORDERED: CIPR1TAB10 PO (08:18)
[2017-02-25] MEDS: DOCUSATE SODIUM 100 MG CAP PO SCH (08:20)
--- NOTE | 2017-02-25 08:21 | Discharge Instructions ---
Discharge Instructions Date of Service Feb 25, 2017. Admission Reason for Admission: Prostate Cancer Discharge Discharge Diagnosis / Problem: Prostate Cancer Discharge Goals Goal(s): Increase independence, Improve disease control, Improve nutritional status Activity Recommendations Activity Limitations: per Instructions/Follow-up section Shower/Bathe: tomorrow 1. Do not lift >15lbs x 6 weeks. 2. No heavy exercise x 6 weeks. You may engage in light activity such as walking and stairs as tolerated. 3. No sexual intercourse until cleared by Dr. Jones or Dr. Granado. 4. Do not drive x [address] while taking narcotics. 5. You have been prescribed the antibiotic Ciprofloxacin. Please start this 2 days prior to vallejo catheter removal. Finish all of the antibiotic you have been prescribed. 6. Immediately call our office at [phone] if your catheter is removed for any reason. 7. Follow-up as scheduled. Please call our office at [phone] if you need to reschedule for any reason. . . Instructions / Follow-Up Instructions / Follow-Up Recommend follow-up with your primary care provider in 1 week for management of elevated glucose. Current Hospital Diet Hospital Diet(s): Regular Diet, Diabetes Type 2 Diet Discharge Diet Recommended Diet: Diabetes Type 2 Diet Procedures Procedures Performed: Robotic assisted laparoscopic prostatectomy with bilateral pelvic lymph node dissection Pending Studies Studies pending at discharge: yes (prostate pathology) List of pending studies: prostate pathology Laboratory Results Hemoglobin A1c Test 01/07/17 05:32 Range/Units Estimated Average Glucose 143 mg/dl Hemoglobin A1c 6.6 H 4.5-5.6 % Lipid Panel Test 02/23/17 08:05 Range/Units Triglycerides Level 282 H 0-150 mg/dl Cholesterol Level 204 H 0-200 mg/dl HDL Cholesterol 39 mg/dl Cholesterol/HDL Ratio 5.2 LDL Cholesterol, Calculated 109 mg/dl Medical Emergencies . Who to Call and When: Medical Emergencies: If at any time you feel your situation is an emergency, please call 911 immediately. . Non-Emergent Contact Non-Emergency issues call your: Urologist Call Non-Emergent contact if: temperature is above 101.5, your pain is not controlled, your pain is worsening, your pain is unusual for you, your pain is concerning you, you have any medication questions . . "Provider Documentation" section prepared by Sailaja Rodríguez. . VTE Core Measure Inpt VTE Proph given/why not?: Unfractionated heparin SQ, SCD's [place] Drug Monitoring Program Search Results: patient reviewed within database, no issues identified
[2017-02-25] MEDS: INSULIN ASPART 100 UNITS/ML 3 ML PEN SC SCH ×2 (08:32→12:42)
[2017-02-25] MEDS ORDERED: LOSARTAN POTASSIUM 50 MG TAB PO SCH (09:00)
[2017-02-25] MEDS ORDERED: NURSING VERBAL MED ORDER ONE (09:30)
[2017-02-25 12:41] VITALS: Ht 177.8 cm; Wt 89.2 kg
[2017-02-25 13:44] VITALS: BP 145/72; PULSE 75; TEMP 36.8; O2SAT 96
--- NOTE | 2017-03-05 09:46 | Discharge Summary ---
Discharge Summary Date of Service Mar 05, 2017. Discharge Summary Admission Date: Feb 24, 2017 at 08:04 Discharge Date: Feb 25, 2017 Principal Diagnosis: Prostate cancer Procedures: Robotic prostatectomy Medication Reconciliation New Medications: Ciprofloxacin Hcl (Cipro) 500 Mg Tab 500 MG PO BID, #10 TAB Start 2 days prior to vallejo catheter removal. Acetaminophen/Codeine (Tylenol W/Codeine #3) 300 Mg/30 Mg Tab 1-2 TAB PO Q4H PRN for Pain, #20 TAB 0 Refills Docusate Sodium (Docusate Sodium) 100 Mg Cap 100 MG PO BID PRN for Constipation, #60 CAP 0 Refills Oxybutynin Chloride (Oxybutynin Chloride) 5 Mg Tab 5 MG PO Q8 PRN for BLADDER SPASMS, #30 TAB 0 Refills Continued Medications: Losartan Potassium (Cozaar) 50 Mg Tab 25 MG PO DAILY, TAB Hospital Course Fer De Los Santos was brought to the hospital for robotic prostatectomy given a prior diagnosis of prostate cancer. He underwent his prostatectomy and uneventful fashion. Details of the operation can be found in the operative report. In summary he tolerated the procedure well and was transferred to the floor in stable condition. He was ambulatory and tolerating a diet on the morning of postoperative day one. His RUSS drain was subsequently removed and he was ultimately discharged home on the afternoon of postoperative day 1. Total time spent on discharge = This includes examination of the patient, discharge planning, medication reconciliation, and communication with other providers. Discharge Instructions Please see the previously written discharge instructions.
--- NOTE | 2017-03-05 10:05 | [facility] Operative Report ---
Operative Report Operative Date February 24, 2017. Pre-Operative Diagnosis Prostate cancer Post-Operative Diagnosis prostate cancer Procedure(s) Performed Robotic prostatectomy with lymph node dissection Surgeon Dr. Abdulaziz Granado MD [employer] Model Maker Apprentice Surgeon(s) Sailaja Rodríguez RN, LABORER [employer] Estimated Blood Loss 150 ml Findings As per dictation Specimens A. Prostate and seminal vesicles B. Salima-prostatic fat C. Right pelvic lymph node D. Left pelvic lymph node Drains RUSS; vallejo Anesthesia Gen Complication(s) None Disposition Recovery Room / PACU (stable) Indications Prostate cancer Description of Procedure Fer De Los Santos was identified in the preoperative holding area and appropriate informed consents were reviewed and completed and the patient was transported to the operating suite. Upon arrival to received appropriate preoperative antibiotics in the form of Ancef as well as general anesthesia. He was placed in dorsal lithotomy position where he was sterilely prepped and draped in standard fashion. Beginning the case a Vallejo catheter was inserted. A Veress needle was then passed per umbilicus. His abdomen was insufflated to 15 mmHg without incident. I proceeded to place a 12 mm Visiport with 10 mm 0 laparoscope via an infraumbilical incision. Full inspection of the abdomen was carried out. There is no evidence of trauma from the Veress needle passage. Anterior abdominal wall was free of adhesions and all port sites were clear. I proceeded to place all ports in standard robotic prostatectomy fashion. We then docked the robot. To begin the robotic portion of the case I mobilized the left lateral aspect of the sigmoid colon with there were slight adhesions. This opened the pouch of Les completely. I then proceeded to incise the peritoneum lateral to the umbilical ligaments on both the right and the left. I transected the umbilical ligaments at the inferior aspect of the umbilicus. I cared my peritoneal incision down to the medial aspect of the internal inguinal rings on both the right and the left. I identified the vasa in both locations. I then proceeded to dissect underneath the pubic arch exposing the anterior surface the prostate. Superficial fat was excised from the prostate as well as the endopelvic fascia. Then proceeded to open endopelvic fascia beginning at the right base and caring my dissection towards the apex. The lateral levator musculature was spared. All periurethral musculature was spared. The lateral aspect of the urethra was visualized. An internal my tension the left-sided performed the same procedure. After thinning the puboprostatic ligaments slightly I controlled the dorsal venous complex utilizing a 0 Vicryl [id number] stitch. There was excellent hemostasis. And then moved on to the lymph node dissection. Vasculature on the lateral pelvic wall was identified. I elevated the fat off the inferior aspect of the external iliac vein. A separate this from the remaining cared my dissection laterally as far as the circumflex vein. The lymphatic packet immediately posterior to this fat was excised en bloc. I utilized monopolar and bipolar electrocautery to obtain excellent hemostasis. I carried my dissection posteriorly and distally as far as the obturator nerve. Extreme care was used to preserve the nerve. I control the most proximal extent of this packet utilizing bipolar electrocautery and a small clip. This lymphatic packet was then withdrawn via the 12 mm cardiology physician assistant port. And then proceeded to perform the same procedure on the left side. After identifying the vascular elements of the left pelvic wall, I elevated the fat off the inferior aspect of the external iliac vein. I dissected laterally as far as the circumflex vein. Lymphatic packet immediately behind this fatty tissue was excised. I cared my dissection inferior to the pubic arch until I encountered the obturator nerve. Care was used to preserve the nerve. The packet was traced up the nerve to its most proximal extent. I controlled the proximal extent of this packet utilizing bipolar electrocautery and a small clip. This specimen was withdrawn via the 12 mm cardiology physician assistant port. I then returned to my attention to the prostate. With gentle traction on the Vallejo catheter and lateral to medial traction from my instruments I was able to demarcate the bladder neck. An anterior cystotomy was created utilizing monopolar electrocautery. I deflated the Vallejo balloon and pulled Vallejo catheter through this anterior cystotomy to apply anterior traction on the prostate. I then dissected laterally around the bladder neck attempting to spare all bladder neck musculature. Cared my dissection to the posterior bladder neck identifying the different layers of the detrusor muscle. This dissection was completed when I reached the vasa. The vasa were then dissected for approximately 3-4 cm in length. There was subsequently transected. I utilized these vasa to help elevate the prostate further while I dissected the bilateral seminal vesicles without incident. Minimal cautery was used around these seminal vesicles and at that bipolar cautery only. There was excellent hemostasis. I then utilized the seminal vesicles to help elevate the prostate was performed posterior dissection. I split Denonvilliers's fascia as I dissected from the base towards the apex of the prostate. After carrying this maximally towards the apex I proceeded to dissect laterally until I encountered in the medial aspect of the neurovascular bundles. I then turned my attention to the control of the vascular pedicles. The lateral prostatic fascia was incised. The vascular pedicles were divided into approximately 4 packets and controlled with Weck clips. On the left-hand side and performed an aggressive nerve sparing. On the right- hand side, I avoided aggressive nerve sparing secondary to his more significant disease. A portion of the neurovascular bundle was subsequently sacrificed on the right. Following minor sparing procedure only apical attachments remaining. With Vallejo catheter in place, I was able to dissect through the dorsal venous complex immediately proximal to the previously placed DVC stitch. Assessment within the apex of the prostate utilizing a combination of monopolar electrocautery and sharp dissection. After sparing maximal urethral length, I transected the urethra cold over top of the Vallejo catheter. The prostate was then removed and was collected in an Endo Catch bag and passed to the upper abdomen. I ensured excellent hemostasis from the prostatic fossa before proceeding. I then passed a double armed V lock stitch into the abdomen. A standard running anastomosis was performed beginning at the posterior bladder neck and completed at the anterior surface of the anastomosis. There appeared to be excellent approximation. A new Vallejo catheter was inserted without incident. The anastomosis was tested with sterile saline, there is no evidence of leak. We then placed FloSeal coagulant around the anastomosis. A RUSS drain was guided into the left lateral most robotic port. A specimen bag was collected through the camera port. The robot was undocked. The proceeded to expand the infraumbilical port to extract the specimen. Fascia was closed with 3 [id number] 0 PDS stitches. All robotic ports were closed with 4-0 Monocryl. The right lateral most cardiology physician assistant port was closed utilizing 2 layers. The deep layer of 0 Vicryl [id number] fashion followed by 4-0 Monocryl on the skin. The drain was sutured in place utilizing a 0 silk. All wounds were infiltrated with half percent Marcaine. Dermabond was placed over the incisions. The case was subsequently concluded and the patient was extubated and taken to the PACU in stable condition. There were no complications. I attest to the content of the Intraoperative Record and any orders documented therein. Any exceptions are noted below.
== END 2017-02-25 15:00 | disposition home or self-care (01) | DRG 708 ==
LOC: C.ACU 06:58 → C.MSW 08:04 → ENRESERV 12:21
PROVIDERS: ADMIT Urology; ATTEND Urology
PROC: 0VT34ZZ Resection of Bilateral Seminal Vesicles, Percutaneous Endoscopic Approach (ICD-10-PCS; principal; 2017-02-24 08:30)
PROC: 8E0W4CZ Robotic Assisted Procedure of Trunk Region, Percutaneous Endoscopic Approach (ICD-10-PCS; principal; 2017-02-24 08:30)
PROC: 0VT04ZZ Resection of Prostate, Percutaneous Endoscopic Approach (ICD-10-PCS; principal; 2017-02-24 08:30)
PROC: 07BC4ZX Excision of Pelvis Lymphatic, Percutaneous Endoscopic Approach, Diagnostic (ICD-10-PCS; principal; 2017-02-24 08:30)
DX: C61 Malignant neoplasm of prostate (principal); I71.2 Thoracic aortic aneurysm, without rupture; E11.9 Type 2 diabetes mellitus without complications; K21.9 Gastro-esophageal reflux disease without esophagitis; E78.5 Hyperlipidemia, unspecified; I10 Essential (primary) hypertension

== ENCOUNTER → 2017-05-29 | Outpatient (CLI) | payer BC ==
[~2017-05-29] MED LIST changes: +ACET-749 PO; -CEFAZOLIN 2000 MG/60 ML D5W IV SCH; +CIPR1TAB10 PO; +CLC100 PO; -DEXAMETHASONE SOD INJ 4 MG/ML VIAL ONE; +DTR5 PO; -FENTANYL CITRATE INJ 50 MCG/1 ML 2 ML VIAL ONE; -GLYCOPYRROLATE INJ 0.2 MG/ML VIAL ONE; -HEPARIN SOD 5000 UNIT/0.5 ML CARP SQ SCH; -LACTATED RINGER'S 1000ML 1,000 ML IV SCH; -LIDOCAINE HCL 2% 2 ML VIAL (20MG/ML) ONE; -MIDAZOLAM HCL 1 MG/ML 2ML VIAL ONE; -ONDANSETRON INJ 2 MG/ML 2 ML VIAL ONE; -PROPOFOL IV EMULSION 10 MG/ML 20 ML VIAL IV ONE; -ROCURONIUM BROMIDE 10 MG/ML 5 ML VIAL ONE
== END | disposition home or self-care (01) ==
LOC: C.LABPVFM 07:17
PROVIDERS: ATTEND Urology
DX: C61 Malignant neoplasm of prostate (principal)

== ENCOUNTER → 2017-09-10 | Outpatient (CLI) | payer OTHER ==
[~2017-09-10] MED LIST changes: -CIPR1TAB10 PO
== END | disposition home or self-care (01) ==
LOC: C.LABPVFM 15:33
PROVIDERS: ATTEND Urology
DX: C61 Malignant neoplasm of prostate (principal)

== ENCOUNTER → 2017-11-05 | Outpatient (CLI) | payer OTHER ==
--- NOTE | 2017-11-05 15:00 | DIAGNOSTIC IMAGING REPORT ---
R EXTREMITY NONVASCULAR LIMITED CLINICAL HISTORY: RIGHT LEG PAIN pain TECHNIQUE: Ultrasound COMPARISON STUDY: None FINDINGS: Evaluation of the popliteal fossa ultrasonically shows no evidence for simple or complex popliteal cyst. Minimal vascular flow is present throughout. IMPRESSION: No evidence for complex or simple popliteal cyst. No abnormality by ultrasound criteria. The above report was generated using voice recognition software. It may contain grammatical, syntax or spelling errors. Electronically signed by: Milad Doan M.D. 11/05/2017 2:59 PM Dictated Date/Time: 11/05/2017 2:58 PM
== END | disposition home or self-care (01) ==
LOC: C.ULTR 14:22
PROVIDERS: ATTEND Physician Assistant Medical
DX: M79.604 Pain in right leg (principal)